=== PATIENT | female | born 2005 | race Caucasian/White ===

== ENCOUNTER 2024-05-30 10:55 | Outpatient (AMB) | payer OTHER, SELFPAY ==
--- NOTE | 2024-05-30 11:29 | AM.OFFWIN_ITS ---
Intake Vital Signs 3 05/30/24 11:30 Height 5 ft 4 in Weight 122 lb 2 oz BMI 21.0 BP 100/72 Blood Pressure Location Rt brachial Position Sitting Pulse 88 Pulse Source Pulse Oximeter Pulse Oximetry (%) 96 Oxygen Delivery Method Room Air Intake Visit Reasons: EST/ swollen gland in grion/headache Intake Note: Patient is here today for painful lump in groin area felt on 05/27/24, headache with fever, chills and ache last night 05/29/24. 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 Tuesday night had pain in left groin. She also had a headache The next AM she had swelling and lump in left groin with a pain Cont w/ pain then developed chills, body aches Yesterday developed a fever T 100.3 Has mild sore throat started this AM and only lasted about 30 minutes Feeling exhausted Denies abd pain, urinary sx, vaginal sx or concern for STD. Is sexually active. Denies rash. Tried NSAID with mild relief. Admits a similar lesion has occurred in the past and last for 6 months and resolved on its own. Plan: Treat with Bactrim for 7 days. Epsom salt baths. Gentle massage. If no improvement after antibiotics, advise that she needs to follow up in the office, with her primary care provider or with an donation worker provider for further management. 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 Erythema, tenderness with palpation, induration Assessment & Plan Assessment & Plan (1) Labial cyst: Comment: left side Code(s): N90.7 - Vulvar cyst Plan: . Medications: New 2 sulfamethoxazole-trimethoprim 800-160 mg (Bactrim DS) 1 tab PO BID 14 tabs 0RF Coding Level of Care Code Est Pt Level 3 (75049) Diagnoses Labial cyst N90.7
[2024-05-30 11:30] VITALS: BP 100/72; PULSE 88; O2SAT 96; BMI 21.0
== END 2024-05-30 12:11 | disposition home or self-care (01) ==
PROVIDERS: Visit Provider Nurse Practitioner Family
DX: N90.7 Vulvar cyst (principal)
CPT/HCPCS: 99213